=== PATIENT | female | born 1995 | race Caucasian/White ===

== ENCOUNTER 2017-06-13 11:58 | Emergency (ER) | payer MEDICAID ==
[2017-06-13 13:04] VITALS: BP 147/82
[2017-06-13 13:33] LABS: Basophils % (Auto) 0.3 % (0.0-1.8); Eosinophils % (Auto) 2.8 % (0.0-4.3); Hematocrit 38.1 % (30.3-42.9); Hemoglobin 12.6 gm/dl (10.1-14.3); Mean Corpuscular HGB Conc 33 % (30-34); Mean Corpuscular Hemoglobin 30 pg (28-32); Mean Corpuscular Volume 91 fl (79-97); Platelet Count 211 K/mm3 (140-440); Red Blood Count 4.17 M/mm3 (3.65-5.03); Red Cell Distribution Width 13.5 % (13.2-15.2); White Blood Count 9.2 K/mm3 (4.5-11.0)
[2017-06-13 14:18] LABS: Alanine Aminotransferase 12 units/L (7-56); Albumin 4.1 g/dL (3.9-5); Albumin/Globulin Ratio 1.2 %; Alkaline Phosphatase 73 units/L (35-129); Anion Gap 16 mmol/L; Blood Urea Nitrogen 15 mg/dL (7-17); Calcium 9.5 mg/dL (8.4-10.2); Carbon Dioxide 26 mmol/L (22-30); Chloride 101.1 mmol/L (98-107); Glucose 78 mg/dL (65-100); Lipase 182 units/L (13-60); Potassium 4.2 mmol/L (3.6-5.0); Sodium 139 mmol/L (137-145); Total Protein 7.6 g/dL (6.3-8.2)
[2017-06-13 14:25] LABS: Bilirubin,Urine NEG (Negative)
[2017-06-13 14:26] LABS: Bacteria,Urine 3+ /HPF (Negative); Blood,Urine SM (Negative); Ketones,Urine NEG (Negative); Leukocyte Esterase,Urine LG (Negative); Mucus,Urine FEW /HPF; Nitrite,Urine NEG (Negative); Urobilinogen,Urine < 2.0 mg/dL (<2.0)
[2017-06-13 14:32] LABS: WBC,Urine > 182.0 /HPF (0.0-6.0)
--- NOTE | 2017-06-13 14:51 | Emergency Department Report ---
ED Female HPI - General Chief complaint: Abdominal Pain Stated complaint: ABD PAIN/HURTS TO URINATE Time Seen by Provider: 06/13/17 14:50 Source: patient Mode of arrival: Ambulatory Limitations: No Limitations - History of Present Illness Initial comments: Patient here report lower abdominal pain to her pelvic area located on the left side that is 8 out of 10 and feels like pressure. No [id number] medication taken. Nothing made pain better and nothing make it worse. She reports that burning and painful urination with some urinary frequency and no urgency. She denies any back pain. Denies any fever or chills. Denies any nausea or vomiting. Last menstrual was 05/26/2017. Denies any vaginal bleeding or discharge. Pain is worse with urinating better when not urinating. No medication taken for pain. MD Complaint: dysuria, pelvic pain Onset/Timin -: days(s) Location: suprapubic Radiation: non-radiating Severity: severe Severity scale (0 -10): 8 Quality: cramping, burning Consistency: intermittent Worsens with: urination Are you Now?: No Associated Symptoms: abdominal pain, dysuria. denies: vaginal discharge, vaginal bleeding, nausea/vomiting, fever/chills, headaches, loss of appetite, hematuria, rash, seizure, shortness of breath, syncope, weakness - Related Data Sexually active: No Previous Rx's Medication Instructions Recorded Last Taken Type Nitrofurantoin [place]/M-Cryst 100 mg PO Q12HR #14 capsule 06/13/17 Unknown Rx [Macrobid CAP] Phenazopyridine [Pyridium] 100 mg PO TID PRN #9 tab 06/13/17 Unknown Rx Allergies Allergy/AdvReac Type Severity Reaction Status Date / Time No Known Allergies Allergy Unverified 03/02/15 18:45 ED Review of Systems ROS: Stated complaint: ABD PAIN/HURTS TO URINATE Other details as noted in HPI Comment: All other systems reviewed and negative Constitutional: no symptoms reported Respiratory: no symptoms reported Cardiovascular: denies: chest pain, palpitations, edema, syncope Genitourinary: dysuria, frequency. denies: urgency, hematuria, discharge, abnormal menses, dyspareunia Musculoskeletal: denies: back pain, arthralgia, myalgia Skin: denies: rash Neurological: denies: headache, weakness, numbness, paresthesias, confusion, abnormal gait, vertigo ED Past Medical Hx - Past Medical History Previous Medical History?: No - Surgical History Past Surgical History?: Yes Additional Surgical History: 2015 c section 2016 - Family History Family history: no significant - Social History Smoking Status: Never Smoker Substance Use Type: None - Medications Home Medications: Home Medications Medication Instructions Recorded Confirmed Last Taken Type Nitrofurantoin [place]/M-Cryst 100 mg PO Q12HR #14 capsule 06/13/17 Unknown Rx [Macrobid CAP] Phenazopyridine [Pyridium] 100 mg PO TID PRN #9 tab 06/13/17 Unknown Rx ED Physical Exam - General Limitations: No Limitations General appearance: alert, in no apparent distress - Head Head exam: Present: atraumatic, normocephalic, normal inspection - Eye Eye exam: Present: normal appearance, PERRL, EOMI Pupils: Present: normal accommodation - ENT ENT exam: Present: normal exam, normal orophraynx, mucous membranes moist - Neck Neck exam: Present: normal inspection, full ROM. Absent: tenderness, lymphadenopathy - Respiratory Respiratory exam: Present: normal lung sounds bilaterally. Absent: respiratory distress, chest wall tenderness - Cardiovascular Cardiovascular Exam: Present: regular rate, normal rhythm, normal heart sounds - GI/Abdominal GI/Abdominal exam: Present: soft, normal bowel sounds. Absent: distended, tenderness, guarding, rebound, rigid, mass, bruit, pulsatile mass, hernia - Extremities Exam Extremities exam: Present: normal inspection, full ROM, normal capillary refill. Absent: tenderness, pedal edema, joint swelling, calf tenderness - Back Exam Back exam: Present: normal inspection, full ROM. Absent: tenderness, CVA tenderness (R), CVA tenderness (L), muscle spasm, paraspinal tenderness, vertebral tenderness, rash noted - Neurological Exam Neurological exam: Present: alert, oriented X3, normal gait, reflexes normal. Absent: motor sensory deficit - Psychiatric Psychiatric exam: Present: normal affect, normal mood - Skin Skin exam: Present: warm, dry, intact, normal color. Absent: rash ED Course Vital Signs 06/13/17 13:01 Temperature 98.2 F Pulse Rate 94 H Respiratory 18 Rate Blood Pressure 147/82 O2 Sat by Pulse 99 Oximetry - Reevaluation(s) Reevaluation #1: 06/13/17 17:27 Patient stable throughout ED stay. 06/13/17 17:27 Abdominal exam remains unchanged ED Medical Decision Making - Lab Data Result diagrams: 06/13/17 13:15 06/13/17 13:15 Lab Results 06/13/17 06/13/17 06/13/17 Range/Units 13:15 13:15 Unknown WBC 9.2 (4.5-11.0) K/mm3 RBC 4.17 (3.65-5.03) M/mm3 Hgb 12.6 (10.1-14.3) gm/dl Hct 38.1 (30.3-42.9) % MCV 91 (79-97) fl MCH 30 (28-32) pg MCHC 33 (30-34) % RDW 13.5 (13.2-15.2) % Plt Count 211 (140-440) K/mm3 Lymph % (Auto) 20.7 (13.4-35.0) % [place] % (Auto) 6.4 (0.0-7.3) % Eos % (Auto) 2.8 (0.0-4.3) % Baso % (Auto) 0.3 (0.0-1.8) % Lymph # 1.9 (1.2-5.4) K/mm3 [place] # 0.6 (0.0-0.8) K/mm3 Eos # 0.3 (0.0-0.4) K/mm3 Baso # 0.0 (0.0-0.1) K/mm3 Seg Neutrophils % 69.8 (40.0-70.0) % Seg Neutrophils # 6.4 (1.8-7.7) K/mm3 Sodium 139 (137-145) mmol/L Potassium 4.2 (3.6-5.0) mmol/L Chloride 101.1 (98-107) mmol/L Carbon Dioxide 26 (22-30) mmol/L Anion Gap 16 mmol/L BUN 15 (7-17) mg/dL Creatinine 0.6 L (0.7-1.2) mg/dL Estimated GFR > 60 ml/min BUN/Creatinine Ratio 25.00 % Glucose 78 (65-100) mg/dL Calcium 9.5 (8.4-10.2) mg/dL Total Bilirubin 0.30 (0.1-1.2) mg/dL AST 14 (5-40) units/L ALT 12 (7-56) units/L Alkaline Phosphatase 73 (35-129) units/L Total Protein 7.6 (6.3-8.2) g/dL Albumin 4.1 (3.9-5) g/dL Albumin/Globulin Ratio 1.2 % Lipase 182 H (13-60) units/L Urine Color [place] (Yellow) Urine Turbidity Cloudy (Clear) Urine pH 5.0 (5.0-7.0) Ur Specific [place] 1.021 (1.003-1.030) Urine Protein 30 mg/dl (Negative) mg/dL Urine Glucose (UA) Neg (Negative) mg/dL Urine Ketones Neg (Negative) mg/dL Urine Blood Sm (Negative) Urine Nitrite Neg (Negative) Urine Bilirubin Neg (Negative) Urine Urobilinogen < 2.0 (<2.0) mg/dL Ur Leukocyte Esterase Lg (Negative) Urine WBC (Auto) > 182.0 H (0.0-6.0) /HPF Urine RBC (Auto) 40.0 (0.0-6.0) /HPF U Epithel Cells (Auto) 31.0 H (0-13.0) /HPF Urine Bacteria (Auto) 3+ (Negative) /HPF Urine Mucus Few /HPF Urine CX sent - Medical Decision Making ED course: Patient here complaining of urinary burning and with pelvic pain to left lower pelvic area. Physical finding with normal exam to abdomen. Patient with positive urinary tract infection. Patient was understanding for diagnosis of dysuria, pelvic pain and acute cystitis with hematuria. I discussed the patient that urine cultures are sent and if we need to change antibiotics she will begin the call from the hospital. I also discussed the patient and her CBC and BMP. Urine test is still pending and patient says she cannot wait and she knows she is not because she is not sexually active. I discussed with her that if it is positive we will call her. Patient's CBC was stable, BMP stable, lipase elevated at 182 and I discussed with her that she'll need to follow-up with GI doctor for management. Patient had benign abdominal exam. She denies drinking alcohol and denies any pancreatic disorder. Patient does have access to primary care and she asked me if I can refer her to a primary care doctor. I will refer patient to Dr. Ricardo French and I discussed with her that she needs to call tomorrow and schedule an appointment for complete physical exam to include repeat labs including lipase and amylase. Patient has no nausea or vomiting. Patient discharged home in stable condition with prescription for Macrobid and Pyridium . follow-up with primary care physician in 3 days. Critical care attestation.: If time is entered above; I have spent that time in minutes in the direct care of this critically ill patient, excluding procedure time. ED Disposition Clinical Impression: Elevated lipase, Acute cystitis with hematuria, Pelvic pain Disposition: TO HOME OR SELFCARE Is pt being admited?: No Does the pt Need Aspirin: No Condition: Stable Instructions: Abdominal Pain (ED), Dysuria (ED), Urinary Tract Infection in Women (ED) Additional Instructions: Your lipase level is elevated at 182 today. This detects pending pancreatic abnormality and she will need to follow up with primary care doctor that I refer to have recheck after you complete your antibiotic. Please take antibiotic for urinary tract infection Please increase her fluid intake Primary care doctor that I refer is Dr. Ricardo French. Please call office tomorrow to schedule an appointment for complete physical exam and to get lipase level rechecked. If you develop, back pain, worsening abdominal pain, fever or chills, nausea vomiting please return to the emergency room [facility] otherwise follow-up with your primary care physician Prescriptions: Nitrofurantoin [place]/M-Cryst [Macrobid CAP] 100 mg PO Q12HR #14 capsule Phenazopyridine [Pyridium] 100 mg PO TID PRN #9 tab PRN Reason: URINE BURNING Referrals: RICARDO FRENCH MD [Staff Physician] - 06/16/17 [facility] [Provider Group] - 06/16/17 Forms: Work/School Release Form(ED)
== END 2017-06-13 17:55 | disposition home or self-care (01) ==
LOC: ED 11:58
DX: N30.01 Acute cystitis with hematuria (principal); R10.2 Pelvic and perineal pain; R74.8 Abnormal levels of other serum enzymes
CPT/HCPCS: 36415; 80053; 81001; 81025; 83690; 85025; 87086; 99283

== ENCOUNTER 2017-08-31 13:52 | Emergency (ER) | payer MEDICAID ==
[2017-08-31 14:37] VITALS: BP 125/70
--- NOTE | 2017-08-31 16:42 | Emergency Department Report ---
HPI - General Chief Complaint: Back Pain/Injury Time Seen by Provider: 08/31/17 16:26 - HPI HPI: Patient is a 22-year-old female who presents to ED complaining of low back pain that started about 3 weeks ago. 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 Patient states pain is worse in the past week. Patient also admits some burning with urination , frequency. She denies fevers/chills/nausea/vomiting/abdominal pains as chest pain/ shortness of breath/trauma fall or recent injury ED Past Medical Hx - Past Medical History Previous Medical History?: No - Surgical History Additional Surgical History: 2015 c section 2016 - Social History Smoking Status: Never Smoker Substance Use Type: None - Medications Home Medications: Home Medications Medication Instructions Recorded Confirmed Last Taken Type Nitrofurantoin [place]/M-Cryst 100 mg PO Q12HR #14 capsule 06/13/17 Unknown Rx [Macrobid CAP] Phenazopyridine [Pyridium] 100 mg PO TID PRN #9 tab 06/13/17 Unknown Rx Ciprofloxacin HCl [Ciprofloxacin 500 mg PO Q12HR #14 tab 08/31/17 Unknown Rx TAB] Cyclobenzaprine [Flexeril] 10 mg PO TID PRN #20 tablet 08/31/17 Unknown Rx Naproxen [Naprosyn] 500 mg PO BID #30 tablet 08/31/17 Unknown Rx ED Review of Systems ROS: Stated complaint: BACK INJURY Other details as noted in HPI Constitutional: denies: chills, fever Eyes: denies: eye pain, eye discharge, vision change ENT: denies: ear pain, throat pain Respiratory: denies: cough, shortness of breath, wheezing Cardiovascular: denies: chest pain, palpitations Endocrine: no symptoms reported Gastrointestinal: denies: abdominal pain, nausea, diarrhea Genitourinary: denies: urgency, dysuria, discharge Musculoskeletal: denies: back pain, joint swelling, arthralgia Skin: denies: rash, lesions Neurological: denies: headache, weakness, paresthesias Psychiatric: denies: anxiety, depression Hematological/Lymphatic: denies: easy bleeding, easy bruising Physical Exam - Physical Exam Vital Signs: Vital Signs 08/31/17 14:33 Temperature 98.1 F Pulse Rate 76 Respiratory 18 Rate Blood Pressure 125/70 O2 Sat by Pulse 100 Oximetry Physical Exam: GENERAL: Alert and oriented x3, no apparent distress, Normal Gait, atraumatic. HEAD: Head is normocephalic and a-traumatic. NECK: Supple. Non edematous, No carotid bruits. No lymphadenopathy or thyromegaly. No C-spine tenderness LUNGS: Symetrical with respiration, No wheezing, no rales or crackles, CTAB. HEART: S1, S2 present, regular rate and rhythm without murmur, no rubs, no gallops. Non tender to palpation ABDOMEN: No organomegaly was noted,Positive bowel sounds, soft, and non- distended. . Nontender to palpation on all Quadrants, NO CVA tenderness. BACK: Full range of motion, no spinal tenderness, nontender to palpation. Tenderness to palpation of the latissimus dorsi muscles. NEUROLOGIC: The patient is cooperative with no focal neurologic deficits. Cranial nerves II through XII are grossly intact. Normal speech. Normal sensation in bilateral upper and lower extremities, No loss of sensation, N SKIN: Warm and dry, No lesions, No ulceration or induration present. ED Course Vital Signs 08/31/17 14:33 Temperature 98.1 F Pulse Rate 76 Respiratory 18 Rate Blood Pressure 125/70 O2 Sat by Pulse 100 Oximetry ED Medical Decision Making - Lab Data Laboratory Last Values Urine Color Yellow (Yellow) 08/31/17 16:36 Urine Turbidity Clear (Clear) 08/31/17 16:36 Urine pH 5.0 (5.0-7.0) 08/31/17 16:36 Ur Specific [place] 1.029 (1.003-1.030) 08/31/17 16:36 Urine Protein 30 mg/dl mg/dL (Negative) 08/31/17 16:36 Urine Glucose (UA) Neg mg/dL (Negative) 08/31/17 16:36 Urine Ketones 80 mg/dL (Negative) 08/31/17 16:36 Urine Blood Lg (Negative) 08/31/17 16:36 Urine Nitrite Neg (Negative) 08/31/17 16:36 Ur Reducing Substances Not Reportable 08/31/17 16:36 Urine Bilirubin Neg (Negative) 08/31/17 16:36 Urine Ictotest Not Reportable 08/31/17 16:36 Urine Urobilinogen < 2.0 mg/dL (<2.0) 08/31/17 16:36 Ur Leukocyte Esterase Lg (Negative) 08/31/17 16:36 Urine WBC (Auto) 48.0 /HPF (0.0-6.0) H 08/31/17 16:36 Urine RBC (Auto) 8.0 /HPF (0.0-6.0) 08/31/17 16:36 U Epithel Cells (Auto) 15.0 /HPF (0-13.0) H 08/31/17 16:36 Urine Bacteria (Auto) 2+ /HPF (Negative) 08/31/17 16:36 Urine Mucus 2+ /HPF 08/31/17 16:36 Urine HCG, Qual Negative (Negative) 08/31/17 16:36 - Medical Decision Making 22-year-old female presents with urinary tract infection ED course: Patient received pain medication Urinalysis and urine test is ordered. urinalysis is positive for UTI , test negative I discussed the findings with the patient. I discussed the patient to follow up with primary care physician. I discussed with the patient to take medication as prescribed, I discussed proper lifting techniques for patient. Also described possibly getting a back brace and use at work while lifting. I discussed heat therapy 3 times a day to the back muscles.. Discussed the patient and take medications as prescribed. Patient has no neurological deficit. Patient is alert and oriented 3 and understands all instructions given. Discussed drowsiness effect of Flexeril makes her drowsy and not to operate machinery while taking flexeril Critical care attestation.: If time is entered above; I have spent that time in minutes in the direct care of this critically ill patient, excluding procedure time. ED Disposition Clinical Impression: Strain of muscle, fascia and tendon of lower back, initial encounter Urinary tract infection Qualifiers: Urinary tract infection type: acute cystitis Hematuria presence: with hematuria Qualified Code(s): N30.01 - Acute cystitis with hematuria Disposition: TO HOME OR SELFCARE Is pt being admited?: No Does the pt Need Aspirin: No Condition: Stable Instructions: Muscle Strain (ED), Urinary Tract Infection in Women (ED), Trigger Point Pain (ED), Musculoskeletal Pain (ED) Additional Instructions: Make sure to follow up with the primary care physician as discussed. Take all your medications as you've been prescribed. If you have any worsening symptoms or develop new symptoms please return to ED immediately. Prescriptions: Ciprofloxacin HCl [Ciprofloxacin TAB] 500 mg PO Q12HR #14 tab Cyclobenzaprine [Flexeril] 10 mg PO TID PRN #20 tablet PRN Reason: Muscle Spasm Naproxen [Naprosyn] 500 mg PO BID #30 tablet Referrals: PRIMARY CARE,MD [Primary Care Provider] - 3-5 Days [facility] [Outside] - 3-5 Days [facility] [Outside] - 3-[address] [facility] [Outside] - 3-5 Days Forms: Work/School Release Form(ED) Time of Disposition: 17:18
[2017-08-31 16:48] LABS: Bacteria,Urine 2+ /HPF (Negative); Bilirubin,Urine NEG (Negative); Blood,Urine LG (Negative); Ketones,Urine 80 mg/dL (Negative); Leukocyte Esterase,Urine LG (Negative); Mucus,Urine 2+ /HPF; Nitrite,Urine NEG (Negative); Urobilinogen,Urine < 2.0 mg/dL (<2.0)
[2017-08-31] MEDS ORDERED: FLEXERIL PO ONE (17:19)
[2017-08-31] MEDS ORDERED: TORADOL IM ONE (17:19)
== END 2017-08-31 17:54 | disposition home or self-care (01) ==
LOC: ED 13:52
DX: S39.012A Strain of muscle, fascia and tendon of lower back, initial encounter (principal); N30.01 Acute cystitis with hematuria; X58.XXXA Exposure to other specified factors, initial encounter; Y93.89 Activity, other specified; Y92.89 Other specified places as the place of occurrence of the external cause; Y99.8 Other external cause status
CPT/HCPCS: 81001; 81025; 96372; 99283; J1885

== ENCOUNTER 2019-12-02 16:46 | Emergency (ER) | payer MEDICAID ==
--- NOTE | 2019-12-02 18:59 | Emergency Department Report ---
Blank Doc - Documentation Documentation: 24-year-old female that presents with chest pain. Denies any SOB. This initial assessment/diagnostic orders/clinical plan/treatment(s) is/are subject to change based on patient's health status, clinical progression and re- assessment by fellow clinical providers in the ED. Further treatment and workup at subsequent clinical providers discretion. Patient/guardians urged not to elope from the ED as their condition may be serious if not clinically assessed and managed. Initial orders include: 1- Patient sent to [facility] for further evaluation and treatment 2- EKG 3- CXR
--- NOTE | 2019-12-02 19:37 | XRay Report ---
CHEST 2 VIEWS INDICATION / CLINICAL INFORMATION: cp. Chest pain COMPARISON: None available. FINDINGS: SUPPORT DEVICES: None. HEART / MEDIASTINUM: No significant abnormality. LUNGS / PLEURA: No significant pulmonary or pleural abnormality. No pneumothorax. ADDITIONAL FINDINGS: No significant additional findings. IMPRESSION: 1. No acute findings. Signer Name: Dany Buitrago MD Signed: 12/02/2019 7:33 PM Workstation Name: [id number]
[2019-12-02] MEDS ORDERED: IBUPROFEN 800 MG TAB PO ONE (19:53)
[2019-12-02] MEDS ORDERED: METOPROLOL TARTRATE 50 MG TAB PO ONE (19:53)
[2019-12-02] MEDS ORDERED: LORazepam 1 MG TAB PO ONE (20:12)
[2019-12-02 20:15] LABS: Basophils # (Auto) 0.1 K/mm3 (0.0-0.1); Basophils % (Auto) 0.6 % (0.0-1.8); Eosinophils # (Auto) 0.2 K/mm3 (0.0-0.4); Eosinophils % (Auto) 2.4 % (0.0-4.3); Hematocrit 38.2 % (30.3-42.9); Hemoglobin 12.4 gm/dl (10.1-14.3); Lymphocytes # (Auto) 1.8 K/mm3 (1.2-5.4); Lymphocytes % (Auto) 19.1 % (13.4-35.0); Mean Corpuscular HGB Conc 33 % (30-34); Mean Corpuscular Volume 93 fl (79-97); Monocytes # (Auto) 0.5 K/mm3 (0.0-0.8); Monocytes % (Auto) 5.7 % (0.0-7.3); Platelet Count 196 K/mm3 (140-440); Red Cell Distribution Width 13.5 % (13.2-15.2)
[2019-12-02 20:38] LABS: Alanine Aminotransferase 13 units/L (7-56); Albumin 4.3 g/dL (3.9-5); BUN/Creatinine Ratio 13; Blood Urea Nitrogen 10 mg/dL (7-17); Calcium 9.5 mg/dL (8.4-10.2); Hemolysis Index 5
[2019-12-02 20:47] VITALS: BP 119/73
[2019-12-02 21:39] LABS: Bacteria,Urine 2+ /HPF (Negative); Bilirubin,Urine NEG (Negative); Blood,Urine SM (Negative); Color,Urine Yellow (Yellow); HCG Qualitative,Urine Negative (Negative); Protein,Urine <15 mg/dL mg/dL (Negative); Urobilinogen,Urine < 2.0 mg/dL (<2.0)
[2019-12-02] MEDS ORDERED: NITROFURANTOIN MONOHYD/M-CRYST 100 MG CAP PO ONE (21:43)
[2019-12-02 21:46] LABS: Amphetamine Screen,Urine PRESUMPTIVE NEGATIVE; Benzodiazepines Screen,Urine PRESUMPTIVE NEGATIVE; Cannabinoid Screen,Urine PRESUMPTIVE NEGATIVE; Cocaine Screen,Urine PRESUMPTIVE NEGATIVE; Methadone Screen,Urine PRESUMPTIVE NEGATIVE; Opiate Screen,Urine PRESUMPTIVE NEGATIVE
[2019-12-02] MEDS ORDERED: FLUCONAZOLE 200 MG TAB PO ONE (22:00)
--- NOTE | 2019-12-02 22:21 | Emergency Department Report ---
ED Chest Pain HPI - General Chief Complaint: Chest Pain Stated Complaint: CHEST PAIN, HEART RATE FAST Time Seen by Provider: 12/02/19 18:57 Source: patient Mode of arrival: Wheelchair Limitations: No Limitations - History of Present Illness Initial Comments: Ms. Mart is a 24-year-old white female with a history of palpitations controlled by metoprolol per patient. States symptoms of palpitations and anxiety today. She denies SI or HI however there is intermittent crying and tearing states she does not know what from. Patient denies substance. Denies recent incident or stressor. Palpitation rated at 3/10 and they are exacerbated by activity and stress. Symptoms are relieved by rest. Patient states she last took her medications 2 days ago. Will obtain labs including troponin and electrolytes, EKG and chest x-ray to rule out . Patient initially agreed to psych consult however she states all is resolved at this time will DC psych consult. She denies SI or HI states safe dwelling. MD Complaint: chest pain, other (palpitations) Onset/Timin -: days(s) Onset: during rest, during exertion Pain Location: substernal Pain Radiation: none Severity: moderate Severity scale (0 -10): 3 Quality: other (palpitations) Consistency: intermittent Improves With: rest Worsens With: exertion, other (stress) re: denies: nausea, vomting, diaphoresis, dyspnea, sense of impending doom Other Symptoms: palpitations. denies: cough, fever, syncope, rash, acid taste in mouth, leg swelling, burping Treatments Prior to Arrival: none - Related Data On Oral Contraceptives: No Previous Rx's Medication Instructions Recorded Last Taken Type Phenazopyridine [Pyridium] 100 mg PO TID PRN #9 tab 06/13/17 Unknown Rx Ciprofloxacin HCl [Ciprofloxacin 500 mg PO Q12HR #14 tab 08/31/17 Unknown Rx TAB] Cyclobenzaprine [Flexeril] 10 mg PO TID PRN #20 tablet 08/31/17 Unknown Rx Fluconazole [Diflucan TAB] 150 mg PO ONCE #1 tablet 12/02/19 Unknown Rx Metoprolol Xl [Metoprolol 25 mg PO BID #60 tablet 12/02/19 Unknown Rx SUCCINATE ER TAB] Naproxen [Naprosyn TAB] 500 mg PO BID PRN #30 tablet 12/02/19 Unknown Rx Nitrofurantoin Kemper/M-Cryst 100 mg PO Q12HR 7 Days #14 capsule 12/02/19 Unknown Rx [Macrobid CAP] Allergies Allergy/AdvReac Type Severity Reaction Status Date / Time No Known Allergies Allergy Verified 08/31/17 14:32 Heart Score - HEART Score History: Slightly suspicious EKG: Normal Age: < 45 Risk factors: 1-2 risk factors Troponin: < normal limit HEART Score: 1 ED Review of Systems ROS: Stated complaint: CHEST PAIN, HEART RATE FAST Other details as noted in HPI Constitutional: denies: chills, fever Eyes: denies: eye pain, eye discharge, vision change ENT: denies: ear pain, throat pain Respiratory: denies: cough, shortness of breath, wheezing Cardiovascular: chest pain. denies: palpitations Endocrine: no symptoms reported Gastrointestinal: as per HPI. denies: abdominal pain, nausea, vomiting Genitourinary: denies: urgency, dysuria, discharge Musculoskeletal: denies: back pain, joint swelling, arthralgia Skin: denies: rash, lesions Neurological: denies: headache, weakness, paresthesias Psychiatric: denies: anxiety, depression Hematological/Lymphatic: denies: easy bleeding, easy bruising ED Past Medical Hx - Past Medical History Previous Medical History?: Yes Additional medical history: cardiac issues - Surgical History Past Surgical History?: Yes Additional Surgical History: 2015 c section 2016 - Social History Smoking Status: Never Smoker Substance Use Type: None - Medications Home Medications: Home Medications Medication Instructions Recorded Confirmed Last Taken Type Phenazopyridine [Pyridium] 100 mg PO TID PRN #9 tab 06/13/17 Unknown Rx Ciprofloxacin HCl [Ciprofloxacin 500 mg PO Q12HR #14 tab 08/31/17 Unknown Rx TAB] Cyclobenzaprine [Flexeril] 10 mg PO TID PRN #20 tablet 08/31/17 Unknown Rx Fluconazole [Diflucan TAB] 150 mg PO ONCE #1 tablet 12/02/19 Unknown Rx Metoprolol Xl [Metoprolol 25 mg PO BID #60 tablet 12/02/19 Unknown Rx SUCCINATE ER TAB] Naproxen [Naprosyn TAB] 500 mg PO BID PRN #30 tablet 12/02/19 Unknown Rx Nitrofurantoin Kemper/M-Cryst 100 mg PO Q12HR 7 Days #14 capsule 12/02/19 Unknown Rx [Macrobid CAP] ED Physical Exam - General Limitations: No Limitations General appearance: alert, in no apparent distress - Head Head exam: Present: atraumatic, normocephalic - Eye Eye exam: Present: normal appearance, PERRL, EOMI Pupils: Present: normal accommodation - ENT ENT exam: Present: normal orophraynx, mucous membranes moist, TM's normal bilaterally, normal external ear exam - Neck Neck exam: Present: normal inspection, full ROM. Absent: tenderness, lymphadenopathy, thyromegaly - Respiratory Respiratory exam: Present: normal lung sounds bilaterally. Absent: respiratory distress, wheezes, rhonchi, stridor, chest wall tenderness - Cardiovascular Cardiovascular Exam: Present: regular rate, normal rhythm, normal heart sounds. Absent: tachycardia - GI/Abdominal GI/Abdominal exam: Present: soft, normal bowel sounds. Absent: distended, tenderness, guarding, rebound, rigid, bruit, hernia - Rectal Rectal exam: Present: deferred - Extremities Exam Extremities exam: Present: normal inspection, full ROM, normal capillary refill. Absent: tenderness, pedal edema - Back Exam Back exam: Present: normal inspection, full ROM. Absent: tenderness, CVA tenderness (R), CVA tenderness (L) - Neurological Exam Neurological exam: Present: alert, oriented X3, CN II-XII intact, normal gait - Psychiatric Psychiatric exam: Present: anxious. Absent: homicidal ideation, suicidal ideation - Skin Skin exam: Present: warm, dry, intact, normal color. Absent: rash ED Course Vital Signs 12/02/19 12/02/19 18:58 20:45 Temperature 98.2 F Pulse Rate 106 H 88 Respiratory 18 16 Rate Blood Pressure 167/82 Blood Pressure 119/73 [Left] O2 Sat by Pulse 100 100 Oximetry TIO score - Tio Score Age > 65: (0) No Aspirin use within the Past 7 Days: (0) No 3 or more CAD Risk Factors: (0) No 2 or more Angina events in past 24 hrs: (0) No Known CAD with more than 50% Stenosis: (0) No Elevated Cardiac Markers: (0) No ST Deviation Greater than 0.5mm: (0) No TIO Score: 0 ED Medical Decision Making - Lab Data Result diagrams: 12/02/19 20:02 12/02/19 20:02 Labs 12/02/19 12/02/19 12/02/19 20:02 20:02 20:06 WBC 9.5 RBC 4.10 Hgb 12.4 Hct 38.2 MCV 93 MCH 30 MCHC 33 RDW 13.5 Plt Count 196 Lymph % (Auto) 19.1 Kemper % (Auto) 5.7 Eos % (Auto) 2.4 Baso % (Auto) 0.6 Lymph # 1.8 Kemper # 0.5 Eos # 0.2 Baso # 0.1 Seg Neutrophils % 72.2 H Seg Neutrophils # 6.9 Sodium 139 Potassium 4.9 Chloride 103.7 Carbon Dioxide 23 Anion Gap 17 BUN 10 Creatinine 0.8 Estimated GFR > 60 BUN/Creatinine Ratio 13 Glucose 109 H Calcium 9.5 Magnesium 2.10 Total Bilirubin 0.20 AST 15 ALT 13 Alkaline Phosphatase 74 Total Protein 7.3 Albumin 4.3 Albumin/Globulin Ratio 1.4 Urine Color Urine Turbidity Urine pH Ur Specific [place] Urine Protein Urine Glucose (UA) Urine Ketones Urine Blood Urine Nitrite Urine Bilirubin Urine Urobilinogen Ur Leukocyte Esterase Urine WBC (Auto) Urine RBC (Auto) U Epithel Cells (Auto) Urine Bacteria (Auto) Urine Yeast (Budding) Urine HCG, Qual Salicylates < 0.3 L Urine Opiates Screen Urine Methadone Screen Acetaminophen Ur Barbiturates Screen Ur Phencyclidine Scrn Ur Amphetamines Screen U Benzodiazepines Scrn Urine Cocaine Screen U Marijuana (THC) Screen Drugs of Abuse Note 12/02/19 12/02/19 12/02/19 20:06 Unknown Unknown WBC RBC Hgb Hct MCV MCH MCHC RDW Plt Count Lymph % (Auto) Kemper % (Auto) Eos % (Auto) Baso % (Auto) Lymph # Kemper # Eos # Baso # Seg Neutrophils % Seg Neutrophils # Sodium Potassium Chloride Carbon Dioxide Anion Gap BUN Creatinine Estimated GFR BUN/Creatinine Ratio Glucose Calcium Magnesium Total Bilirubin AST ALT Alkaline Phosphatase Total Protein Albumin Albumin/Globulin Ratio Urine Color Yellow Urine Turbidity Cloudy Urine pH 6.0 Ur Specific [place] 1.003 Urine Protein <15 mg/dl Urine Glucose (UA) Neg Urine Ketones Neg Urine Blood Sm Urine Nitrite Neg Urine Bilirubin Neg Urine Urobilinogen < 2.0 Ur Leukocyte Esterase Lg Urine WBC (Auto) 101.0 H Urine RBC (Auto) 8.0 U Epithel Cells (Auto) 3.0 Urine Bacteria (Auto) 2+ Urine Yeast (Budding) 2+ Urine HCG, Qual Negative Salicylates Urine Opiates Screen Presumptive negative Urine Methadone Screen Presumptive negative Acetaminophen < 5.0 L Ur Barbiturates Screen Presumptive negative Ur Phencyclidine Scrn Presumptive negative Ur Amphetamines Screen Presumptive negative U Benzodiazepines Scrn Presumptive negative Urine Cocaine Screen Presumptive negative U Marijuana (THC) Screen Presumptive negative Drugs of Abuse Note Disclamer - Radiology Data Radiology results: report reviewed, image reviewed - Medical Decision Making Ms. Mart is a now a/o x 3, demonstrates good mentation and decision making capacity. She appears well , with nad. There is no HI or SI. I have discussed all lab fingings including ua: pt will be tx'd UTI, refill betablocker and follow up with [facility] as schedulded, and pcp in 2-3 days. she denies cp or sob a this time. heart score is 1 for hx, ekg: NSR , No ST Elevated Mi interp by ed attending, Trop ,0.01. Patient initially agreed to psych consult however she states all is resolved at this time will DC psych consult. She denies SI or HI states safe dwelling. Critical care attestation.: If time is entered above; I have spent that time in minutes in the direct care of this critically ill patient, excluding procedure time. ED Disposition Clinical Impression: Palpitations, Stress UTI (urinary tract infection) Qualifiers: Urinary tract infection type: acute cystitis Hematuria presence: without hematuria Qualified Code(s): N30.00 - Acute cystitis without hematuria Disposition: DC TO HOME OR SELFCARE Is pt being admited?: No Does the pt Need Aspirin: No Condition: Stable Additional Instructions: take all prescriptions a prescribed, follow up with your primary care doctor in 2-3 days. Prescriptions: Fluconazole [Diflucan TAB] 150 mg PO ONCE #1 tablet Nitrofurantoin Kemper/M-Cryst [Macrobid CAP] 100 mg PO Q12HR 7 Days #14 capsule Metoprolol Xl [Metoprolol SUCCINATE ER TAB] 25 mg PO BID #60 tablet Naproxen [Naprosyn TAB] 500 mg PO BID PRN #30 tablet PRN Reason: pain Referrals: MARY GRACE HECTOR MD [Staff Physician] - 3-5 Days Forms: Work/School Release Form(ED) Time of Disposition: 23:08
== END 2019-12-02 23:40 | disposition home or self-care (01) ==
LOC: ED 16:46
DX: F43.9 Reaction to severe stress, unspecified (principal); R00.2 Palpitations; N39.0 Urinary tract infection, site not specified; F41.9 Anxiety disorder, unspecified; Z79.899 Other long term (current) drug therapy; Z98.890 Other specified postprocedural states
CPT/HCPCS: 36415; 71046; 80053; 80307; 80320; 81001; 81025; 83735; 84484; 85025; 93005; 93010; G0480